=== PATIENT | female | born 1970 | race Two or more races ===

== ENCOUNTER 2020-10-07 07:49 | Emergency (ER) | payer MEDICAID, OTHER ==
[~2020-10-07] VITALS: Ht 170.2 cm; Wt 80.0 kg
--- NOTE | 2020-10-07 07:57 | NUR ---
triage: patient arrives visibly sob that she states began two days ago and has gotten worse in spite of her home nebulizer treatments. asthma
--- NOTE | 2020-10-07 08:02 | NUR ---
ERMD AT BEDSIDE FOR EVALUATION.
--- NOTE | 2020-10-07 08:06 | NUR ---
PATIENT WHEELED BACK FROM TRIAGE WITH CHIEF C/O SOB X2 DAYS. PER PATIENT SHE HAS BEEN USING HER NEBULIZER AT HOME MORE FREQUENTLY WITH NO RELIEF. LAST NEBULIZER TREATMENT AT HOME "ABOUT 20 MINUTES AGO." PATIENT DENIES FEVER, COUGH, NO SICK CONTACTS. UPON ASSESSMENT PATIENT IS BREATHING RAPID AND SHALLOW, O2 SATURATION 98% ON RA, HR 90, OTHER VSS, AT BEDSIDE, CALL LIGHT WITHIN REACH.
[2020-10-07] MEDS ORDERED: ALBUTEROL 0.5%, 20ML ONE ×2 (08:11)
[2020-10-07] MEDS ORDERED: IPRATROPIUM 0.5 MG/2.5 ML INHA ONE (08:11)
[2020-10-07] MEDS ORDERED: SODIUM CHLORIDE FLUSH 10ML SYR IVF ONE (08:30)
[2020-10-07] MEDS ORDERED: ALBUTEROL 0.5%, 20ML NPPB SCH (08:30)
[2020-10-07] MEDS ORDERED: IPRATROPIUM 0.5 MG/2.5 ML INHA NPPB ONE (08:30)
--- NOTE | 2020-10-07 08:52 | NUR ---
PATIENT TOLERATED BREATHING TREATMENTS WELL, REPORTS FEELING BETTER. VSS, CALL LIGHT WITHIN REACH.
--- NOTE | 2020-10-07 09:15 | NUR ---
ERMD AT BEDSIDE TO DISCUSS POC.
[2020-10-07 09:22] VITALS: BP 181/97
--- NOTE | 2020-10-07 09:28 | NUR ---
Patient and spouse given discharge instructions and prescription and they have confirmed that they understand the instructions. Patient stable and ambulatory with steady gait from ED to private vehicle with spouse.
== END 2020-10-07 09:29 | disposition home or self-care (01) ==
LOC: ED 09:08
DX: J45.41 Moderate persistent asthma with (acute) exacerbation (principal); R06.02 Shortness of breath; R94.31 Abnormal electrocardiogram [ECG] [EKG]; Z87.891 Personal history of nicotine dependence
CPT/HCPCS: 71045; 93005; 94640; 99284; J7512; J7644

== ENCOUNTER 2020-10-07 16:09 | Emergency (ER) | payer SELFPAY ==
[~2020-10-07] VITALS: Ht 170.2 cm; Wt 83.0 kg
[2020-10-07] MEDS ORDERED: IPRATROPIUM 0.5 MG/2.5 ML INHA NPPB ONE (16:30)
[2020-10-07] MEDS ORDERED: methylPREDNISolone SOD SUCC 125 MG/2 ML IV ONE (16:30)
[2020-10-07] MEDS ORDERED: ALBUTEROL SULFATE 2.5 MG/3 ML NPPB ONE (16:30)
[2020-10-07] MEDS ORDERED: SODIUM CHLORIDE FLUSH 10ML SYR IVF ONE (16:30)
[2020-10-07] MEDS ORDERED: ALBUTEROL SULFATE 2.5 MG/3 ML ONE (16:38)
[2020-10-07] MEDS ORDERED: IPRATROPIUM 0.5 MG/2.5 ML INHA ONE (16:39)
[2020-10-07] MEDS ORDERED: methylPREDNISolone SOD SUCC 125 MG/2 ML ONE (16:52)
[2020-10-07 17:14] LABS: ALBUMIN 3.9 g/dL (3.4-5.0); ANION GAP 7 mmol/L (5-15); BASOPHILS % (AUTO) 0 % (0-1); CALCIUM 9.7 mg/dL (8.5-10.1); CHLORIDE 108 mmol/L (98-107); CREATININE 1.02 mg/dL (0.55-1.02); EOSINOPHILS % (AUTO) 0 % (1-7); LYMPHOCYTES % (AUTO) 6 % (22-44); MEAN CORPUSCULAR HEMOGLOBIN 29.4 pg (27.0-34.8); MEAN CORPUSCULAR HGB CONC 32.9 g/dL (32.4-35.8); MEAN PLATELET VOLUME 8.8 fL (7.4-10.4); MONOCYTES % (AUTO) 2 % (2-9); NEUTROPHILS % (AUTO) 93 % (42-75); PLATELET COUNT 223 x10^3/uL (130-400); RED BLOOD COUNT 5.07 x10^6/uL (3.82-5.3); RED CELL DISTRIBUTION WIDTH 14.3 % (9.6-15.2)
[2020-10-07 17:16] LABS: MD NO
[2020-10-07 17:18] LABS: TROPONIN I < 0.015 ng/mL (0.000-0.045)
[2020-10-07] MEDS ORDERED: MAGNESIUM SULFATE PMX 2GM/50ML 50 ML ONE (18:14)
[2020-10-07] MEDS ORDERED: MAGNESIUM SULFATE PMX 2GM/50ML 50 ML IV ONE (18:30)
--- NOTE | 2020-10-07 19:18 | NUR ---
PT BIB POV DUE TO "ASTHMA ATTACK". SEEN EARLIER TODAY FOR THE SAME. PT RESTING IN [facility], MEDICATED PER EMAR, MONITORING IN PLACE, NADN AT THIS TIME, GRADY.
--- NOTE | 2020-10-07 19:48 | NUR ---
PT RESTING [facility] EYES CLOSED IN [facility] AT THIS TIME, PER PT NO NEEDS AT THIS TIME, MONITORING IN PLACE, WCTM.
[2020-10-07 21:01] VITALS: BP 135/89
== END 2020-10-07 21:02 | disposition home or self-care (01) ==
LOC: ED 16:47
DX: J45.41 Moderate persistent asthma with (acute) exacerbation (principal); R00.0 Tachycardia, unspecified
CPT/HCPCS: 36415; 80048; 82040; 84484; 85025; 93005; 94640; 96365; 96366; 96375; 99284; J2930; J3475; J7613; J7644